=== PATIENT | female | born 1985 | race Caucasian/White ===

== ENCOUNTER 2023-02-15 15:10 | Emergency (ER) | payer OTHER, BC, SELFPAY ==
--- NOTE | ~2023-02-15 | XR_ITS ---
EXAMINATION: XR finger 1st RT min 2V DATE: 02/15/2023 15:50 INDICATION: Dog bite injury to the right thumb TECHNIQUE: Dorsal palmar, lateral and oblique views of the right first digit were obtained COMPARISON: None FINDINGS: Alignment is normal. No fracture. Joint spaces are normal. Soft tissues are unremarkable. IMPRESSION: 1. Negative right thumb radiographs. Reviewed, dictated and finalized at location A. 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
[2023-02-15 15:28] VITALS: BP 129/89; PULSE 82; RESP 16; TEMP 37.5; O2SAT 100
--- NOTE | 2023-02-15 16:02 | ED.ANIMALBIT ---
HPI - Animal Bite General Chief Complaint: Wound/Laceration Stated Complaint: dog bite left arm, right thumb Time Seen by Provider: 02/15/23 15:30 Source: patient Mode of arrival: ambulatory Limitations: no limitations History of Present Illness HPI narrative: Jeanie is a 37-year-old female patient presenting to the clinic today with complaints of a dog bite to the left arm causing a puncture wound and also states that the dog bit her right thumb. She works at a vet clinic. Dog is up today with all her shots per patient. Tetanus is up-to-date per patient Related Data Home Medications Medication Instructions Recorded Confirmed dextroamphetamine-amphetamine ER PO 02/15/23 20 mg 24hr capsule,extend release Allergies Allergy/AdvReac Type Severity Reaction Status Date / Time No Known Allergies Allergy Verified 02/15/23 15:15 Review of Systems Review of Systems: Pertinent positives per HPI. Patient denies any fever, chills, rash, headache, visual changes, dizziness, cough, runny nose, sore throat, shortness of breath, chest pain, palpitations, nausea, vomiting, diarrhea, constipation, abdominal pain, or any urinary issues. PMFSH Comments At the time of my signature, I reviewed and agree with the nursing past medical, surgical, social, and family history. There is no relevant family history pertinent to the patient complaint. Exam Narrative: General: Well-developed, well nourished, in no apparent distress Head: Normocephalic, atraumatic. Cardio: Regular rate and rhythm, s1 and s2 normal, no murmur appreciated. Resp: Clear to auscultation bilaterally, no rhonchi, rales, wheezing or rubs. Integumentary: [place], warm, and dry, puncture wound to the left medial forearm with mild swelling surrounding the puncture wound, abrasions and swelling noted to the base of the right thumb, pain with flexion and extension of the right thumb. No step-off deformity. Course Course Emergency Course: Portions of this record may have been created with voice recognition software. Level of Care: Express Care Visit Vital Signs Vital signs: Vital Signs Temperature 37.5 C 02/15/23 15:28 Pulse Rate 82 02/15/23 15:28 Respiratory Rate 16 02/15/23 15:28 Blood Pressure 129/89 02/15/23 15:28 Pulse Oximetry 100 02/15/23 15:28 Oxygen Delivery Room Air 02/15/23 15:28 Temperature 37.5 C 02/15/23 15:28 Pulse Rate 82 02/15/23 15:28 Respiratory Rate 16 02/15/23 15:28 Blood Pressure 129/89 02/15/23 15:28 Pulse Oximetry 100 02/15/23 15:28 Oxygen Delivery Room Air 02/15/23 15:28 Vital signs reviewed MDM - Animal Bite MDM Narrative Medical decision making narrative: At the time of visit patient is resting comfortably on the exam table. X-ray of the right thumb is negative for any sign of fracture or malalignment. Will place the patient on Augmentin. Puncture wound was cleansed with antiseptic soap and saline, triple antibiotic ointment and Band-Aid was applied. Supportive measures were discussed with the patient she voiced understanding of the discharge instructions and agrees to treatment plan. Return precautions were reviewed. Tetanus is up-to-date per patient Differential Diagnosis Differential diagnosis: Likely bite by animal, dog bite and other (Puncture wound, right thumb fracture) Discharge Plan Discharge Clinical Impression: Abrasion of skin of right thumb Dog bite Qualifiers: Encounter type: initial encounter Qualified Code(s): W54.0XXA - Bitten by dog, initial encounter Puncture wound of forearm Qualifiers: Encounter type: initial encounter Laterality: left Qualified Code(s): S51.832A - Puncture wound without foreign body of left forearm, initial encounter Contusion of right thumb Qualifiers: Encounter type: initial encounter Damage to nail status: without damage Qualified Code(s): S60.011A - Contusion of right thumb without damage to nail, initial encounter
== END 2023-02-15 16:12 | disposition home or self-care (01) ==
PROVIDERS: Emergency Provider Nurse Practitioner Family; PCP Physician Assistant Medical
DX: S60.311A Abrasion of right thumb, initial encounter (principal); S51.832A Puncture wound without foreign body of left forearm, initial encounter; S60.011A Contusion of right thumb without damage to nail, initial encounter; W54.0XXA Bitten by dog, initial encounter
CPT/HCPCS: 73140; 99203; G0463